=== PATIENT | male | born 1955 | race Caucasian/White ===

== ENCOUNTER → 2021-11-06 | Outpatient (CLI) | payer SELFPAY ==
--- NOTE | 2021-11-06 16:04 | NM ---
EXAMINATION TYPE: NM bone scan whole body DATE OF EXAM: 11/06/2021 COMPARISON: NONE HISTORY: Prostate carcinoma Delayed whole-body scanning was performed following the injection of 22.3 mCi Tc 99m MDP. Images acq uired 3 hours post injection. FINDINGS: Uptake of radiopharmaceutical is noted within the feet, ankles, knees, wrists and hands, shoulders an d sternoclavicular joints, likely degenerative. Soft tissue uptake is normal. No abnormal increased o r decreased uptake to suggest metastatic disease. IMPRESSION: No evident metastatic disease
== END | disposition home or self-care (01) ==
LOC: RADNMMAIN 09:42
DX: C61 Malignant neoplasm of prostate (principal)
CPT/HCPCS: 78306; A9503